=== PATIENT | female | born 1985 | race Caucasian/White ===

== ENCOUNTER 2016-05-31 22:55 | Emergency (ER) | payer OTHER ==
[~2016-05-31 22:55] MED LIST: BACTRIM DS TABL1 TA1 PO; BACTRIM DS TABL1 TAB PO; DOXYCYCLINE150 MG PO; FLAGYL PO; HYDROCODONE-APA1 T42; KEFLEX PO; KLONOPIN; LEVAQUIN PO; METRONIDAZOLE PO; PHENERGAN12.5 MG PO
== END 2016-05-31 23:00 | disposition home or self-care (01) ==
LOC: CED 22:55
DX: L29.9 Pruritus, unspecified (principal); F41.9 Anxiety disorder, unspecified; F41.0 Panic disorder [episodic paroxysmal anxiety]; F17.200 Nicotine dependence, unspecified, uncomplicated; Z79.899 Other long term (current) drug therapy
CPT/HCPCS: 99282